=== PATIENT | male | born 1990 | race Caucasian/White ===

== ENCOUNTER 2022-02-28 12:30 | Emergency (ER) | payer OTHER, SELFPAY ==
[2022-02-28 12:31] VITALS: BP 147/93; PULSE 89; RESP 14; TEMP 36.4; O2SAT 99; BMI 27.9
--- NOTE | 2022-02-28 12:41 | EKG12_ITS ---
Test Reason : CP Blood Pressure : / mmHG Vent. Rate : 088 BPM Atrial Rate : 088 BPM P-R Int : 144 ms QRS Dur : 088 ms QT Int : 360 ms P-R-T Axes : 068 015 048 degrees QTc Int : 435 ms Normal sinus rhythm Normal ECG Confirmed by MAME HOOKS, SAHRA ([id number]), editorial cartoonist RADHA SOLOMON ([id number]) on 03/03/2022 10:48:34 AM Referred By: LUIZA/JINGA Confirmed By:SAHRA VILCHIS MD
--- NOTE | 2022-02-28 12:52 | EDS_ITS ---
HPI <YANNICK Calle - Last Filed: 02/28/22 13:40> History of Present Illness Chief Complaint: Chest Pain Narrative Narrative: 31-year-old male with no sniffing medical history presents to the emergency department with chest pressure, shortness of breath, a feeling of dizziness. Patient has he was driving his car, felt a sudden onset of midsternal chest pressure, felt like he was hard to breathe, he also felt dizzy. Patient has no history of cardiac disease, patient states a family history of stroke, TIA. He recently returned from [facility] 9 days ago, he denies any leg pain. Denies any fevers or chills or infectious symptoms. PFSH <YANNICK Calle - Last Filed: 02/28/22 13:40> [facility] Medical History no medical history Allergy/AdvReac Type Severity Reaction Status Date / Time No Known Allergies Allergy Verified 02/28/22 12:31 Social History Smoking Status: Never smoker ROS <YANNICK Calle - Last Filed: 02/28/22 13:40> ROS ED ROS Narrative Constitutional: Negative for fever, chills, weight loss, weakness Eyes: Negative for vision loss, vision change, double vision ENT: Negative for any sore throat, ear pain, congestion Cardiovascular: Negative for any palpitations. Positive chest pain, tightness Respiratory: Negative for any cough, sputum production, hemoptysis, dyspnea, dyspnea on exertion, orthopnea Gastrointestinal: Negative for any abdominal pain, nausea, vomiting, diarrhea, constipation, blood in stool, blood in vomit : Negative for any urinary frequency, dysuria, retention, blood in urine Muscle skeletal: Negative for any muscle joint pain, stiffness, myalgias, a rthralgias, neck pain, back pain Neurological: Negative for any headache, syncope, numbness or tingling. Positive for dizziness Skin: Negative for any rashes, lumps, itching, abrasions, lacerations Psychiatric: Negative for any depression, anxiety, stress, suicidal ideation, homicidal ideation Hematologic: Negative for any easy bruising, excessive bruising, easy bleeding Allergies: Negative for any eczema, hives, rash EXAM <YANNICK Calle - Last Filed: 02/28/22 13:40> Physical Exam Narrative Exam Narrative: Vital signs reviewed. HEET: Head normocephalic atraumatic, TMs clear bilaterally. Posterior pharynx is clear, moist mucous membranes. Nares clear bilaterally. Neck: Supple with no lymphadenopathy or tenderness. No signs of meningismus, negative jolt sign. Cardiac: Regular rate and rhythm no murmurs gallops or rubs, equal peripheral pulses bilaterally. Respiratory: Lungs clear to auscultation bilaterally. No chest tenderness. Abdomen: Soft, nontender, nondistended. No abdominal bruit or pulsatile masses. No hepatosplenomegaly Extremities: No peripheral edema, no signs of gross trauma or deformity. Active full range of motion of all extremities. Neuro: Cranial nerves II through XII intact, no focal neurological deficits. Skin: Clean dry and intact with no rash, purpura, petechiae, vesicles or pustules. Backs/flank: No CVA tenderness, no midline spinal tenderness, no deformity. Psych: Normal mood and affect. No SI, HI or acute psychosis. Const Vital Signs: 02/28/22 12:31 02/28/22 12:45 Temperature 97.5 F L Temperature Source Temporal Pulse Rate 89 Respiratory Rate 14 Respiratory Effort Normal Blood Pressure 147/93 H Blood Pressure Mean 111 Pulse Ox 99 Oxygen Delivery Method Room Air Positive well nourished and well developed General Appearance ED: well developed <Dr. Dennis Lam DO - Last Filed: 02/28/22 18:14> Physical Exam Const Vital Signs: 02/28/22 12:31 02/28/22 12:45 Temperature 97.5 F L Temperature Source Temporal Pulse Rate 89 Respiratory Rate 14 Respiratory Effort Normal Blood Pressure 147/93 H Blood Pressure Mean 111 Pulse Ox 99 Oxygen Delivery Method Room Air [facility] <YANNICK Calle - Last Filed: 02/28/22 13:40> [facility] Narrative Medical decision making narrative: Patient appears well, patient appears nontoxic, vital signs are stable. Patient presents the [facility] apartment chest pressure, shortness of breath, slight dizziness. Patient did receive a cardiac work-up, patient's EKG was unremarkable, patient did have a troponin which was negative. Due to the patient's travel history, I did perform a D-dimer, this was negative. Patient CBC and chemistries were unremarkable chest x-ray was unremarkable, read by ER attending. At this time, there is no evidence of AK, ACS, pneumonia, PE. The patient is feeling much better and will follow up. Patient will be referred to her primary care physician. He is instructed return for any worsening symptoms. Patient stable for discharge Lab Data Attestation: I reviewed the patient's lab results. Labs: Laboratory Results - last 24 hr 02/28/22 02/28/22 02/28/22 12:51 12:51 12:51 WBC 6.8 RBC 4.76 Hgb 14.9 Hct 44.1 MCV 92.6 MCH 31.3 MCHC 33.8 RDW Std Deviation 40.5 RDW Coeff of [place] 11.9 Plt Count 288 MPV 9.5 Immature Gran % (Auto) 0.400 Neut % (Auto) 74.4 H Lymph % (Auto) 18.1 L [place] % (Auto) 6.4 Eos % (Auto) 0.1 Baso % (Auto) 0.6 Absolute Neuts (auto) 5.0 Absolute Lymphs (auto) 1.22 Nucleated RBC % 0 D-Dimer Quant (PE/DVT) < 0.27 L Sodium 138 Potassium 4.0 Chloride 105 Carbon Dioxide 26.0 Anion Gap 7 BUN 16 Creatinine 1.17 Estim Creat Clear Calc 93.59 Est GFR (MDRD) Af Amer 93 Est GFR (MDRD) Non-Af 77 BUN/Creatinine Ratio 13.7 Glucose 131 H Calcium 9.1 Troponin I High Sens 4 Radiography Chest X-Ray - ED: 1 View Diagnostic Testing: Clinical Impression(s) from Imaging Studies Chest X-Ray 02/28/22 12:54 IMPRESSION: Normal x-ray examination of the chest. Electronically Signed: Andrea Elam MD at 13:33 EDT , EKG Normal sinus rhythm, rate of 80 bpm: Attestation: I personally reviewed and interpreted this EKG as follows: Interpretation: Sinus Rhythm Comments: Normal sinus rhythm, rate of 88 bpm, WI interval 144 ms, QRS duration 88 ms, no acute ST elevation, no acute infarct noted. <Dr. Dennis Lam, DO - Last Filed: 02/28/22 18:14> [facility] Narrative Medical decision making narrative: I have personally performed a face to face assessment of the patient and have reviewed the [facility] Note. I performed a substantive portion of the visit including all aspects of the following. My campos findings include: History: Patient presents with chest pain that began today. Patient states it is over the substernal area. Patient states it is improved since he arrived here in the emergency department. Patient denies any fevers or chills. Patient denies any shortness of breath. Patient does admit to a recent plane trip to [facility]. Exam: Vital signs are stable. Patient is afebrile. Patient is in no acute distress. Oral mucosa is pink and moist. Neck is supple. Trachea is midline. There is no JVD. Heart was regular rate and rhythm. Lungs are clear and equal bilaterally. Abdomen is soft. Bowel sounds are normal. There is no tenderness. Cranial nerves II through XII are intact. There are no focal motor or sensory deficits. Medical Decision Making: EKG was obtained. On my interpretation shows a normal sinus rhythm. There are no acute ST or T wave changes. Portable 1 view chest x-ray was obtained. On my interpretation, lung molina are clear. There is normal cardiac silhouette. Bony thorax is normal. There is no acute process noted. Radiologist also interpreted the x-ray and agrees. CBC was within normal limits. Basic metabolic profile was normal. D-dimer was normal. High- sensitivity troponin was normal. Patient is feeling better on reevaluation. Patient was instructed to follow-up with his primary care physician in 5 to 7 days. Patient understood and was agreeable with the plan. All questions were answered. Lab Data Attestation: I reviewed the patient's lab results. Labs: Laboratory Results - last 24 hr 02/28/22 02/28/22 02/28/22 12:51 12:51 12:51 WBC 6.8 RBC 4.76 Hgb 14.9 Hct 44.1 MCV 92.6 MCH 31.3 MCHC 33.8 RDW Std Deviation 40.5 RDW Coeff of [place]ix[place] 11.9 Plt Count 288 MPV 9.5 Immature Gran % (Auto) 0.400 Neut % (Auto) 74.4 H Lymph % (Auto) 18.1 L [place] % (Auto) 6.4 Eos % (Auto) 0.1 Baso % (Auto) 0.6 Absolute Neuts (auto) 5.0 Absolute Lymphs (auto) 1.22 Nucleated RBC % 0 D-Dimer Quant (PE/DVT) < 0.27 L Sodium 138 Potassium 4.0 Chloride 105 Carbon Dioxide 26.0 Anion Gap 7 BUN 16 Creatinine 1.17 Estim Creat Clear Calc 93.59 Est GFR (MDRD) Af Amer 93 Est GFR (MDRD) Non-Af 77 BUN/Creatinine Ratio 13.7 Glucose 131 H Calcium 9.1 Troponin I High Sens 4 Radiography Chest X-Ray - ED: 1 View, Read by ED Physician, Read by Radiologist and No Acute Disease Diagnostic Testing: Clinical Impression(s) from Imaging Studies Chest X-Ray 02/28/22 12:54 IMPRESSION: Normal x-ray examination of the chest. Electronically Signed: Andrea Elam MD at 13:33 EDT , Discharge Plan Triage Chief Complaint: Chest Pain ED Midlevel Provider: Werner Hernandez ED Provider: Dennis Lam Dx/Rx/DC Orders Clinical Impression: Chest pain in adult Instructions: ED Chest Pain, Noncardiac, ED Chest Pain, Uncertain Cause Primary Care Provider: Care Physician,No Primary Referrals: Yolette Nava DO [STAFF PHYSICIAN] - (Please follow-up) Care Physician,No Primary [Primary Care Provider] - Print Language: Divehi Disposition Disposition: Home, Self Care Discharge Date/Time: 02/28/22 14:32
--- NOTE | 2022-02-28 12:54 | RAD_ITS ---
STUDY: X-RAY CHEST REASON FOR EXAM: Male, 31 years old. 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 COMPARISON: None. FINDINGS: The lungs are clear and expanded. There is no demonstrated pleural abnormality. Normal size heart. Normal mediastinum and frances. Normal visualized pulmonary arteries. Normal visualized aortic arch and descending thoracic aorta. There are diffuse degenerative changes of the visualized thoracic spine. Normal visualized ribs, clavicles, and shoulders. There is no demonstrated abnormality of the visualized soft tissue structures of the upper abdomen. RAD/Chest 1 View (Portable) IMPRESSION: Normal x-ray examination of the chest. Electronically Signed: Andrea Elam MD at 13:33 EDT ,
[2022-02-28] MEDS: 0.9% Normal Saline 1,000 ML 1000 ML IV (12:59)
[2022-02-28 13:00] LABS: Absolute Lymphocyte Count 1.22 X10^3/uL (0.83-4.51); Basophil# 0.04 X10^3/uL; Basophil% 0.6 % (0-1); Eosinophil# 0.01 X10^3/uL; Eosinophils% 0.1 % (0-5); Hematocrit 44.1 % (40-54); Hemoglobin 14.9 g/dL (13.0-16.5); Lymphocyte # 1.22 X10^3/ul (0.83-4.51); Lymphocyte % 18.1 % (19-41); Mean Corp Hgb Conc 33.8 g/dL (32-36); Mean Corpuscular Hgb 31.3 pg (27.0-32.0); Mean Corpuscular Volume 92.6 fL (80-94); Mean Platelet Vol. 9.5 fl (6.2-12.0); Monocyte# 0.43 X10^3/uL; Monocyte% 6.4 % (0-10); NRBC Flagged by Analyzer 0 % (0-5); Neutrophil # 5.02 X10^3/uL (2.7-7.7); Neutrophil % 74.4 % (47-70); Platelet Count 288 K/mm3 (150-450); RBC Distribution Width CV 11.9 % (11.6-14.6); RBC Distribution Width SD 40.5 fl (35.1-43.9); Red Blood Count 4.76 M/mm3 (4.6-6.2); White Blood Count 6.8 K/mm3 (4.4-11.0)
[2022-02-28 13:14] LABS: D-Dimer Quantitative (DVT/PE) < 0.27 FEU/ug/m (0.27-0.49)
[2022-02-28 13:24] LABS: Anion Gap 7 (5-15); BUN 16 mg/dL (7-18); BUN/Creat Ratio 13.7 RATIO (10-20); Calcium,Total 9.1 mg/dL (8.5-10.1); Chloride 105 mmol/L (98-107); Creatinine, Serum 1.17 mg/dL (0.70-1.30); EST Glomerular Filtration Rate 77 mL/min (>60); Est Glom Filt Rate - Afr Amer 93 mL/min (>60); Estimated Creatinine Clearance 93.59 ml/min; Glucose 131 mg/dL (74-106); Sodium Level 138 mmol/L (136-145); Troponin-I HS 4 pg/mL (3.0-78.0)
--- NOTE | 2022-02-28 13:37 | CM.ED ---
Social Work Note Reason for Referral: No PCP SW reviewed chart, No PCP listed. SW in to speak with pt. Pt has guest present in the room. Pt gave permission for this worker to speak to him in front of his guest. Pt confirms that he has no PCP. SW provided pt with PCP list. Acacia Flores MACHINES TECHNICIAN, HOME HEALTH CARE WORKER
== END 2022-02-28 14:32 | disposition home or self-care (01) ==
PROVIDERS: Nurse Practitioner; Emergency Provider Emergency Medicine; Visit Provider Emergency Medicine
DX: R07.9 Chest pain, unspecified (principal); R42 Dizziness and giddiness; R06.02 Shortness of breath
CPT/HCPCS: 71045; 80048; 84484; 85025; 85379; 93005; 96360; 99285; J7030; A4216